=== PATIENT | female | born 1965 | race American Indian/Alaskan Native ===

== ENCOUNTER 2018-11-19 13:27 | Outpatient (CLI) | payer MEDICARE ==
[2018-11-19 14:16] LABS: Hematocrit 36.5 % (30.3-42.9); Hemoglobin 12.1 gm/dl (10.1-14.3); Mean Corpuscular HGB Conc 33 % (30-34); Mean Corpuscular Volume 81 fl (79-97); Platelet Count 358 K/mm3 (140-440); Red Blood Count 4.54 M/mm3 (3.65-5.03); Red Cell Distribution Width 13.5 % (13.2-15.2)
[2018-11-19 14:47] LABS: Alanine Aminotransferase 13 units/L (7-56); Albumin 3.7 g/dL (3.9-5); BUN/Creatinine Ratio 7; Blood Urea Nitrogen 4 mg/dL (7-17); Calcium 9.1 mg/dL (8.4-10.2); Chol/HDL Ratio 2.38 %; HDL Cholesterol 62 mg/dL (40-59); Hemolysis Index 4; LDL Cholesterol,Direct 89 mg/dL (50-130)
--- NOTE | 2018-11-19 15:49 | XRay Report ---
CHEST TWO VIEWS: 11/19/18 13:27:00 CLINICAL: Sleep apnea. COMPARISON: None FINDINGS: Normal heart and pulmonary vasculature. The lungs are normally expanded and clear.The bones and soft tissues are unremarkable. IMPRESSION: Normal chest.
== END 2018-11-19 13:28 | disposition home or self-care (01) ==
LOC: CARD 13:27
PROVIDERS: ATTEND Internal Medicine
DX: G47.30 Sleep apnea, unspecified (principal); R07.9 Chest pain, unspecified
CPT/HCPCS: 36415; 36600; 71046; 80053; 80061; 82803; 84436; 84443; 85027; 93005; 93010

== ENCOUNTER 2020-11-06 08:31 | Outpatient (CLI) | payer MEDICARE ==
--- NOTE | 2020-11-06 10:22 | Fluoroscopy Report ---
Barium swallow Indication: EPIGASTRIC PAIN. Technique: Single and double contrast barium technique utilized to evaluate the esophagus. Findings: No mucosal irregularity, mass, mass effect, or critical stenosis. There were mild abnorm al tertiary contractions as seen with dysmotility. There was moderate gastroesophageal reflux reachin g the mid esophagus. Impression: Moderate gastroesophageal reflux and mild esophageal dysmotility. Fluoroscopic time: 1.5 minutes Number of fluoroscopic images: 14 Signer Name: Scott Saba MD Signed: 11/06/2020 10:18 AM Workstation Name: [id number]
== END 2020-11-06 08:32 | disposition home or self-care (01) ==
LOC: FLUORO 08:31
PROVIDERS: ATTEND Internal Medicine Geriatric Medicine
DX: K21.9 Gastro-esophageal reflux disease without esophagitis (principal)
CPT/HCPCS: 74246